=== PATIENT | female | born 1980 | race Caucasian/White ===

== ENCOUNTER 2017-03-09 18:52 | Emergency (ER) | payer MEDICAID ==
[~2017-03-09] VITALS: Ht 167.6 cm; Wt 70.8 kg
[2017-03-09 18:58] VITALS: BP_SYST 128
[2017-03-09] MEDS ORDERED: NACL 0.9% 1,000 ML IV ONE (20:04)
[2017-03-09] MEDS ORDERED: KETOROLAC TROMETHAMINE 30 MG VIAL IVP ONE (20:15)
[2017-03-09 20:42] LABS: BASOPHILS % (AUTO) 0.5 % (0.0-2.0); EOSINOPHILS # (AUTO) 0.2 K/uL (0.0-0.4); EOSINOPHILS % (AUTO) 1.7 % (0.0-4.0); HEMATOCRIT 36.7 % (36-48); HEMOGLOBIN 12.6 g/dL (12.0-16.0); LYMPHOCYTES # (AUTO) 2.3 K/uL (1.0-5.5); LYMPHOCYTES % (AUTO) 25.9 % (20.5-51.5); MEAN CORPUSCULAR HEMOGLOBIN 30 pg (27-31); MEAN CORPUSCULAR HGB CONC 35 % (32-36); MEAN CORPUSCULAR VOLUME 86 fL (79.0-98.0); MONOCYTES # (AUTO) 0.9 K/uL (0.0-1.0); NEUTROPHILS # (AUTO) 5.7 K/uL (1.8-7.7); NEUTROPHILS % (AUTO) 61.9 % (40.0-70.0); PLATELET COUNT (AUTO) 272 K/uL (130-430); RED BLOOD CELL COUNT(AUTO) 4.28 MIL/uL (4.2-6.2); RED CELL DISTRIBUTION WIDTH 13.4 % (9.0-15.0); WHITE BLOOD COUNT (AUTO) 9.1 K/uL (4.8-10.8)
[2017-03-09 20:49] LABS: CALCIUM 8.4 mg/dL (8.4-11.0); CREATININE 0.9 mg/dL (0.55-1.30); POTASSIUM 3.8 mmol/L (3.5-5.1)
[2017-03-09 21:05] LABS: BILIRUBIN,URINE NEGATIVE (NEGATIVE); BLOOD, URINE 3+ (NEGATIVE); CLARITY/URINE CLOUDY (CLEAR); COLOR,URINE RED (YELLOW); GLUCOSE,URINE NEGATIVE (NEGATIVE); KETONES,URINE TRACE (NEGATIVE); LEUKOCYTE ESTERASE ,URINE 1+ (NEGATIVE); NITRITE, URINE POSITIVE (NEGATIVE); PH,URINE 6.5 (5.0-8.0); PROTEIN URINE 3+ (NEGATIVE)
[2017-03-09 21:39] LABS: BACTERIA,URINE FEW /HPF (None Seen); MUCUS,URINE None Seen /LPF (None Seen); RBC,URINE >100 /HPF (0-3)
[2017-03-09 22:16] VITALS: BP_SYST 120
== END 2017-03-09 22:16 | disposition home or self-care (01) ==
LOC: SED 18:52
DX: N93.8 Other specified abnormal uterine and vaginal bleeding (principal); N39.0 Urinary tract infection, site not specified; G43.909 Migraine, unspecified, not intractable, without status migrainosus; Z91.040 Latex allergy status
CPT/HCPCS: 36415; 76830; 76857; 80048; 81000; 81025; 84703; 85025; 87086; 88305; 96361; 96374; 99285; J1885; J7030

== ENCOUNTER 2017-03-31 13:00 | Emergency (ER) | payer MEDICAID ==
[~2017-03-31] VITALS: Ht 167.6 cm; Wt 81.6 kg
[2017-03-31 13:00] VITALS: BP 128/82; PULSE 84; RESP 16; TEMP 97.8; O2SAT 99
[2017-03-31 13:18] VITALS: BP 128/82; PULSE 89; RESP 18; TEMP 98.2; O2SAT 100
[2017-03-31] MEDS ORDERED: IBUPROFEN 800 MG TABLET PO ONE (13:30)
[2017-03-31 14:29] VITALS: BP 114/72; PULSE 77; RESP 16; O2SAT 98
== END 2017-03-31 14:30 | disposition home or self-care (01) ==
LOC: SED 13:00
DX: S70.01XA Contusion of right hip, initial encounter (principal); S60.211A Contusion of right wrist, initial encounter; R51 Headache; G43.909 Migraine, unspecified, not intractable, without status migrainosus; Z91.040 Latex allergy status; W18.39XA Other fall on same level, initial encounter; Y93.89 Activity, other specified; Y92.89 Other specified places as the place of occurrence of the external cause; Y99.8 Other external cause status
CPT/HCPCS: 72170-TC; 73502; 81025; 99284

== ENCOUNTER 2018-01-24 20:17 | Emergency (ER) | payer MEDICAID ==
[~2018-01-24] VITALS: Ht 167.6 cm; Wt 73.9 kg
[2018-01-24 20:20] VITALS: BP_SYST 115
[2018-01-24] MEDS ORDERED: BACITRACIN 1 GM OINT TP ONE (21:15)
[2018-01-24] MEDS ORDERED: DIPH-TET-PERTUS Vaccine 0.5 ML VIAL (ADACEL) IM ONE (21:15)
[2018-01-24 21:26] VITALS: BP_SYST 133
== END 2018-01-24 21:26 | disposition home or self-care (01) ==
LOC: SED 20:17
DX: S81.831A Puncture wound without foreign body, right lower leg, initial encounter (principal); G43.909 Migraine, unspecified, not intractable, without status migrainosus; Z88.0 Allergy status to penicillin; Z91.040 Latex allergy status; W54.0XXA Bitten by dog, initial encounter; Y93.89 Activity, other specified; Y92.89 Other specified places as the place of occurrence of the external cause; Y99.8 Other external cause status
CPT/HCPCS: 90715; 99283

== ENCOUNTER 2019-11-29 19:32 | Emergency (ER) | payer MEDICAID ==
[~2019-11-29] VITALS: Ht 167.6 cm; Wt 77.1 kg
[2019-11-29 19:37] VITALS: BP_SYST 137
--- NOTE | 2019-11-29 19:41 | NUR ---
Patient to ER bed 08 to gown for evaluation. Side rails up.
--- NOTE | 2019-11-29 19:45 | NUR ---
Patient AOx4, ambulatory, presents to ED with complaint of 5/10 pain to left 3rd digit post basketball injury. Patient states she was trying to prevent the basketball from hitting her daughter's face so she tried to block the basketball. Patient states unable to bend finger. No other symptoms or complaints.
--- NOTE | 2019-11-29 19:46 | NUR ---
JAIME Nguyen at bedside for medical evaluation.
[2019-11-29 21:04] VITALS: BP_SYST 128
--- NOTE | 2019-11-29 21:04 | NUR ---
Patient given written and verbal discharge instructions and verbalizes understanding. ER MD discussed with patient the results and treatment provided. Patient in stable condition. ID arm band removed. Rx of Motrin given. Patient educated on pain management and to follow up with PMD. Pain Scale 2/10 tolerable to patient. Opportunity for questions provided and answered. Medication side effect fact sheet provided.
== END 2019-11-29 21:04 | disposition home or self-care (01) ==
LOC: SED 19:32
DX: S62.623A Displaced fracture of middle phalanx of left middle finger, initial encounter for closed fracture (principal); R03.0 Elevated blood-pressure reading, without diagnosis of hypertension; Z91.040 Latex allergy status; W21.05XA Struck by basketball, initial encounter; Y93.67 Activity, basketball; Y92.89 Other specified places as the place of occurrence of the external cause; Y99.8 Other external cause status
CPT/HCPCS: 99283

== ENCOUNTER 2021-07-20 11:29 | Emergency (ER) | payer MEDICAID ==
[~2021-07-20] VITALS: Ht 167.6 cm; Wt 82.1 kg
[2021-07-20 11:48] VITALS: BP_SYST 139
[2021-07-20] MEDS ORDERED: KETOROLAC TROMETHAMINE 30 MG VIAL IVP ONE (13:15)
[2021-07-20 14:29] VITALS: BP_SYST 139
== END 2021-07-20 14:29 | disposition home or self-care (01) ==
LOC: SED 11:29
DX: S31.41XA Laceration without foreign body of vagina and vulva, initial encounter (principal); Z91.040 Latex allergy status; X58.XXXA Exposure to other specified factors, initial encounter; Y93.89 Activity, other specified; Y92.89 Other specified places as the place of occurrence of the external cause; Y99.8 Other external cause status
CPT/HCPCS: 96372; 99281; 99284

== ENCOUNTER 2021-11-10 10:30 | Emergency (ER) | payer MEDICAID, SELFPAY ==
[~2021-11-10] VITALS: Ht 167.6 cm; Wt 83.9 kg
[2021-11-10 11:19] VITALS: BP_SYST 125
--- NOTE | 2021-11-10 11:24 | NUR ---
SENT TO TRIAGE
--- NOTE | 2021-11-10 12:19 | NUR ---
AMBULATED TO TENT 1
--- NOTE | 2021-11-10 12:29 | NUR ---
DR. BAR AT BEDSIDE
[2021-11-10] MEDS ORDERED: DIPHENHYDRAMINE HCL 50 MG CAPSULE PO ONE (12:45)
[2021-11-10] MEDS ORDERED: DECADRON 4 MG TABLET PO ONE (12:45)
[2021-11-10] MEDS ORDERED: FAMOTIDINE 20 MG TABLET PO ONE (12:45)
--- NOTE | 2021-11-10 12:45 | NUR ---
PT CAME IN FROM HOME C/O "SWOLLEN UVULA". REPORTS RECENTLY BEING DX'D WITH UTI AND ON TWO MEDICATIONS PRESCRIBED. PT REPORTS THAT SHE FEELS LIKE SHE IS HAVING A REACTION TO THE MEDICATIONS. NO DIFFICULTY BREATHING, NO RASH OR REDNESS, NO ITCHING. PT IS AMBULATORY, AAOX4, V/S STABLE
--- NOTE | 2021-11-10 13:05 | NUR ---
LAB AT THE BEDSIDE FOR BLOOD DRAW
[2021-11-10 13:22] LABS: BILIRUBIN,URINE NEGATIVE (NEGATIVE); CLARITY/URINE CLEAR (CLEAR); COLOR,URINE YELLOW (YELLOW); GLUCOSE,URINE NEGATIVE (NEGATIVE); KETONES,URINE NEGATIVE (NEGATIVE); LEUKOCYTE ESTERASE ,URINE 1+ (NEGATIVE); NITRITE, URINE NEGATIVE (NEGATIVE); PROTEIN URINE NEGATIVE (NEGATIVE); UROBILINOGEN,URINE 0.2 (0.2-1.0)
[2021-11-10 13:23] LABS: BLOOD, URINE TRACE (NEGATIVE)
[2021-11-10 13:40] LABS: BACTERIA,URINE FEW /HPF (None Seen); MUCUS,URINE 1+ /LPF (None Seen)
[2021-11-10] MEDS ORDERED: ONDANSETRON 4 MG ODT TAB PO ONE (14:15)
[2021-11-10] MEDS ORDERED: FAMO20TA8 PO (14:27)
[2021-11-10] MEDS ORDERED: DEC4 PO (14:27)
[2021-11-10] MEDS ORDERED: DIPH25CA83 PO (14:27)
[2021-11-10] MEDS ORDERED: ONDA4TAB5 PO (14:27)
[2021-11-10 14:52] VITALS: BP_SYST 114
--- NOTE | 2021-11-10 14:54 | NUR ---
Patient given written and verbal discharge instructions and verbalizes understanding. ER Dr. Polo discussed with patient the results and treatment provided. Patient in stable condition. ID arm band removed. Rx of Decadron, Benadryl, Pepcid, and Zofran given. Patient educated on pain management and to follow up with PMD. Pain Scale 4. Opportunity for questions provided and answered. Medication side effect fact sheet provided.
== END 2021-11-10 14:54 | disposition home or self-care (01) ==
LOC: SED 10:30
DX: K12.2 Cellulitis and abscess of mouth (principal); N39.0 Urinary tract infection, site not specified; Z91.040 Latex allergy status; Z79.899 Other long term (current) drug therapy; Z20.822 Contact with and (suspected) exposure to COVID-19
CPT/HCPCS: 36415; 81000; 84702; 86403; 87081; 87086; 87426; 99284; J8540; Q0162; Q0163

== ENCOUNTER 2022-02-07 10:10 | Emergency (ER) | payer MEDICAID, SELFPAY ==
[~2022-02-07] VITALS: Ht 167.6 cm; Wt 85.3 kg
[~2022-02-07 10:10] MED LIST: DEC4 PO; DIPH25CA83 PO; FAMO20TA8 PO; ONDA4TAB5 PO
[2022-02-07 10:22] VITALS: BP_SYST 122
--- NOTE | 2022-02-07 10:24 | NUR ---
Patient to ER bed 8 to gown for evaluation. Side rails up. Report given to Michael CASTRO/Nicky CASTRO.
--- NOTE | 2022-02-07 10:28 | NUR ---
Pt presented to ED because of left earache which radiates to left lower mouth arch. pt ambulated into ED without assisstance. Pt denies chest pains, auscultated hr S1 and S2 present, no gallops. VS stable and within normal limits. Pt is AOx4. Pt was driven here from home pain started two weeks ago as left sided sinus pain, ao 2 days ago the pain migrated to left ear and as of today it is radiating to her teeth on left lower jaw. Assessed ears patients has no discharge/erythema, pt did state she is having problems hearing out of left ear. assessed nares, no occlussions, do drainage. I assessed oral cavity patient has a crack molar distal lower arch that has a partial filling. pt stated pain is 10/10. left pt room with bed lowered and side rails up. pt stable
[2022-02-07] MEDS ORDERED: CLIN-142 PO (10:36)
[2022-02-07] MEDS ORDERED: PSEU30TA36 PO (10:36)
[2022-02-07] MEDS ORDERED: KETOROLAC TROMETHAMINE 30 MG VIAL IM ONE (10:45)
--- NOTE | 2022-02-07 11:25 | NUR ---
Dr Talavera at pt bedside
[2022-02-07 11:29] VITALS: BP_SYST 121
--- NOTE | 2022-02-07 11:34 | NUR ---
Patient given written and verbal discharge instructions and verbalizes understanding. ER MD Dr Talavera discussed with patient the results and treatment provided. Patient in stable condition. ID arm band removed. Rx of given. Patient educated on pain management and to follow up with PMD. Pain Scale . Opportunity for questions provided and answered. Medication side effect fact sheet provided.
== END 2022-02-07 11:34 | disposition home or self-care (01) ==
LOC: SED 10:10
DX: H66.92 Otitis media, unspecified, left ear (principal); R21 Rash and other nonspecific skin eruption; L29.9 Pruritus, unspecified; R60.9 Edema, unspecified; Z91.040 Latex allergy status
CPT/HCPCS: 96372; 99283; J1885